=== PATIENT | female | born 1985 | race Caucasian/White ===

== ENCOUNTER 2021-10-25 07:24 | Day surgery (SDC) | payer BC ==
[2021-10-24 16:19] LABS: Absolute Lymphocytes (CBC) 2.4 K/uL (0.7-4.9); Hematocrit 45.6 % (36.0-45.0); Lymphocytes % 26.9 % (15.3-44.8); RBC Red Blood Cell Count 5.12 M/uL (3.86-4.86)
[2021-10-24 16:43] LABS: ALT/SGPT 80 U/L (12-78); AST/SGOT 25 U/L (15-37); Albumin 4.2 g/dL (3.4-5.0); Alkaline Phosphatase 67 U/L (45-117); Amylase 70 U/L (25-115); BUN Blood Urea Nitrogen 13 mg/dL (7-18); Bicarbonate 28 mmol/L (21-32); Bilirubin Total 0.4 mg/dL (0.2-1.0); Glomerular Filtration Rate 102 ml/min (=/>90); Glucose Level 83 mg/dL (74-106); Lipase 172 U/L (73-393); Potassium 4.2 mmol/L (3.5-5.1); Protein, Total 8.5 g/dL (6.4-8.2); Sodium Level 138 mmol/L (136-145)
[2021-10-24 16:44] LABS: Bilirubin Direct < 0.1 mg/dL (0-0.2)
[2021-10-24 17:02] LABS: SARS-CoV-2 Antigen Rapid Res Negative (Negative)
[2021-10-25] MEDS ORDERED: CEFOXITIN SODIUM 1 GM/VIAL ONE (07:47)
[2021-10-25] MEDS ORDERED: Ringers Lactate 1,000 ML IV ONE (07:47)
[2021-10-25] MEDS ORDERED: ACETAMINOPHEN 500 MG TAB ONE (08:49)
[2021-10-25] MEDS ORDERED: CELECOXIB 100 MG CAPSULE ONE (08:49)
[2021-10-25] MEDS ORDERED: ROCURONIUM 50 MG/5 ML VIAL IV ONE (09:06)
[2021-10-25] MEDS ORDERED: FENTANYL CITR 100 MCG/2 ML ONE (09:06)
[2021-10-25] MEDS ORDERED: LIDOCAINE 2% MPF 5 ML VIAL ONE (09:06)
[2021-10-25] MEDS ORDERED: propofoL 200 MG/20 ML VIAL IV ONE (09:06)
[2021-10-25] MEDS ORDERED: MIDAZOLAM HCL 2 MG/2 ML INJ ONE (09:06)
[2021-10-25] MEDS ORDERED: dexAMETHasone 10 MG/ML VIAL ONE (09:06)
[2021-10-25] MEDS ORDERED: ONDANSETRON 4 MG/2 ML VIAL ONE ×2 (09:07→12:26)
[2021-10-25] MEDS ORDERED: KETOROLAC 30 MG/ML INJ ONE (10:02)
[2021-10-25] MEDS ORDERED: Phenylephrine HCl 10 MG/ML 1 ML VIAL ONE (10:06)
--- NOTE | 2021-10-25 10:07 | P.BOP ---
Preoperative diagnosis: RUQ abd pain. biliary dyskinesia, cholecystitis Postoperative diagnosis: same, umbilical hernia Primary procedure: 1 Laparoscopic cholecystectomy Secondary procedure: 2. open repair of umbilical hernia Estimated blood loss: <10cc Specimen: gb, hernia sac Findings: as above Anesthesia: General Complications: None Transferred to: Recovery Room Condition: Good
[2021-10-25 10:27] VITALS: O2SAT 100
[2021-10-25 11:36] VITALS: BP 107/63; TEMP 98
[2021-10-25] MEDS ORDERED: CODEINE 30MG/APAP 300MG TAB ONE (12:17)
--- NOTE | 2021-10-25 12:41 | OP ---
Date of Procedure: 10/25/2021 Surgeon: Onesimo Ennis MD Preoperative Diagnoses: Right upper quadrant abdominal pain, biliary dyskinesia, cholecystitis. Postoperative Diagnoses: Right upper quadrant abdominal pain, biliary dyskinesia, cholecystitis plus umbilical hernia. Procedures: 1.Laparoscopic cholecystectomy. 2.Open repair of umbilical hernia. Estimated Blood Loss: Less than 10 mL. Specimen: Gallbladder and hernia sac. Findings: The patient has evidence of cholecystitis and also as above. The patient also has hernia sac with some incarcerated omentum on it. The omentum was carefully retracted back into the abdomina l cavity after full inspection and some adhesions were removed from the hernia sac. The hernia sac w as removed. Anesthesia: General plus local. Complications: None. Estimated Blood Loss: Less than 10 mL. Indication: This is the case of a 36-year-old patient, who comes to us for persistent tender right u pper quadrant pain due to HIDA scan, duplication of symptoms with a challenge. She understands her e jection fraction, understands the pros and cons of laparoscopic possible open cholecystectomy. She d oes not want to continue conservative treatment. She wants the gallbladder removed. The benefits, a lternatives, and risks of laparoscopic possible open cholecystectomy were fully explained, which incl ude, but not limited to infection, bleeding, damage to adjacent structures, anesthesia complication, bile leak, pancreatitis, [place], and even . She also understands this may not relieve any symptoms. She might need more than one surgical intervention. She understood, signed a consent. Procedure In Detail: The patient was brought to the operating room, placed in supine position. Anes thesia was done without complication. Abdominal area was prepped and draped in the usual sterile fas hion. Marcaine 0.5% was injected for local anesthetic followed by sharp incision of the skin in the infraumbilical region. Incision was carried down to fascia. Immediately, we noticed the patient to have a hernia sac there. So, we the hernia sac from the umbilical skin, opened the hernia sac, noticed incarcerated omentum with some adhesions of the hernia sac. Once those adhesions were r emoved, the omentum was inspected and allowed to retract back into the abdominal cavity intact with n o bleeding. The hernia sac was removed. Fascial edges were cleaned. We extended the incision and p laced Vicryl #1 inside the fascia. Paula trocar was carefully introduced. Pneumoperitoneum was obt ained. I paid attention to the right upper quadrant. We placed 3 more trocars, 5 mm each one of the m under direct visualization. This allowed me to put a grasper in the fundus of the gallbladder, ano ther grasper in the infundibulum, retracting the gallbladder in the inferolateral fashion, exposing t he triangle of Calot and obtaining critical view. Cystic duct and cystic artery were clearly isolate d, freed circumferentially and a connection between those and the gallbladder were clearly identified . I proceeded to ligate those by using at least 3 clips proximal, 1 clip distal, ligation in the mid dle. Same was done with the cystic artery. No bile leak. No bleeding. The gallbladder was removed from liver using Bovie cauterizer and removed from abdominal cavity using EndoCatch through umbilica l incision. The area was inspected once again. No bile leak. No bleeding. Clips were intact. At that moment, I proceeded to remove the trocars under direct vision. Deflated the pneumoperitoneum. Closed the fascia with #1 Vicryl and closed the umbilical hernia with #1 Vicryl. Irrigated subcutane ous tissue, closed that with 3-0 chromic and the skin in subcuticular fashion with 3-[address] jr-Strips on top. Sponge count and instrument counts correct. The patient tolerated the procedure well. The patient was sent to recovery in stabl e condition. SILVIA/JAKOB Voice ID: [id number] Report ID: [id number]
--- NOTE | 2021-10-25 12:41 | DS ---
Diagnoses: Right upper quadrant pain, biliary dyskinesia, cholecystitis, umbilical hernia. Procedures: Laparoscopic cholecystectomy and open repair of umbilical hernia. Disposition: Home. Activity: As tolerated. No heavy lifting. Plan: Follow up in my office in 1 week. Call for appointment at [phone]. Keep area dry for 48 iona rs, then may shower. Keep Steri-Strip intact. SILVIA/JAKOB Voice ID: [id number] Report ID: [id number]
== END 2021-10-25 12:35 | disposition home or self-care (01) ==
LOC: OR 07:24
PROVIDERS: ATTEND Surgery
PROC: 0FT44ZZ Resection of Gallbladder, Percutaneous Endoscopic Approach (ICD-10-PCS; principal; 2021-10-25 09:15)
DX: K80.10 Calculus of gallbladder with chronic cholecystitis without obstruction (principal); R10.11 Right upper quadrant pain; K82.8 Other specified diseases of gallbladder; Z20.822 Contact with and (suspected) exposure to COVID-19
CPT/HCPCS: 85025; 80048; 36415; 82150; 84703; 80076; 88302; 88304; 83690; 87811; 47562; J2704; J2370; J2250; J3010; J1100; J7120; J0694; J2405 ×2